=== PATIENT | female | born 2000 | race Caucasian/White ===

== ENCOUNTER 2020-04-16 00:40 | Emergency (ER) | payer BC ==
[2020-04-16] MEDS ORDERED: SODIUM CHLORIDE 0.9% 500 ML INFUS.BAG IV ONE ×2 (00:50→02:18)
[2020-04-16] MEDS ORDERED: ONDANSETRON 4 MG/2 ML VIAL IVPUSH ONE (00:50)
[2020-04-16] MEDS ORDERED: ACETAMINOPHEN 1000 MG/100 ML VIAL (NON FORMULARY) IVPB ONE (00:51)
[2020-04-16 00:52] VITALS: BP 105/64; PULSE 105; BMI 23.6
[2020-04-16] MEDS ORDERED: ACETAMINOPHEN INJECTION 100 ML IVPB ONE (00:59)
[2020-04-16] MEDS ORDERED: ONDANSETRON 4 MG/2 ML VIAL ONE (00:59)
[2020-04-16] MEDS ORDERED: LORazepam 2 MG/ML SDV VIAL ONE (01:37)
[2020-04-16] MEDS ORDERED: LORazepam 2 MG/ML SDV VIAL IVPUSH ONE (01:45)
== END 2020-04-16 02:54 | disposition home or self-care (01) ==
LOC: FER 00:40
PROC: 3E0333Z Introduction of Anti-inflammatory into Peripheral Vein, Percutaneous Approach (ICD-10-PCS; principal; 2020-04-16)
PROC: 3E033NZ Introduction of Analgesics, Hypnotics, Sedatives into Peripheral Vein, Percutaneous Approach (ICD-10-PCS; 2020-04-16)
PROC: 3E033GC Introduction of Other Therapeutic Substance into Peripheral Vein, Percutaneous Approach (ICD-10-PCS; 2020-04-16)
DX: F12.90 Cannabis use, unspecified, uncomplicated (principal); R11.10 Vomiting, unspecified
CPT/HCPCS: 99284-25; J0131

== ENCOUNTER 2021-05-21 21:29 | Emergency (ER) | payer BC ==
[2021-05-21 21:36] VITALS: BP 126/82; PULSE 80; TEMP 98.4; BMI 22.4
[2021-05-21] MEDS ORDERED: SODIUM CHLORIDE 1,000 ML IV STA ×2 (22:06→22:53)
[2021-05-21] MEDS ORDERED: ONDANSETRON 4 MG/2 ML VIAL IVPUSH ONE (22:06)
[2021-05-21] MEDS ORDERED: ONDANSETRON 4 MG/2 ML VIAL ONE (22:15)
[2021-05-21 22:29] LABS: EPITHELIAL CELLS MODERATE /hpf
[2021-05-21] MEDS ORDERED: KETOROLAC TROMETHAMINE 30 MG/1 ML VIAL ONE (23:37)
[2021-05-21] MEDS ORDERED: KETOROLAC TROMETHAMINE 30 MG/1 ML VIAL IVPUSH ONE (23:37)
[2021-05-21 23:55] LABS: BASO % 0.5 % (0-2.0); EOS % 0.7 % (0-4.5); HEMATOCRIT 36.9 % (32.4-45.2); HEMOGLOBIN 12.6 GM/dL (10.7-15.3); LYMPH % 34.5 % (8-40); MCH 30.9 pg (25.7-33.7); MCHC 34.2 g/dl (32.0-36.0); MEAN CELL VOLUME 90.4 fl (80-96); MEAN PLT VOLUME 9.3 fl (7.5-11.1); MONO % 8.2 % (3.8-10.2); NEUT % 56.1 % (42.8-82.8); PLATELET COUNT 201 10^3/uL (134-434); RBC 4.08 M/mm3 (3.60-5.2); RDW 13.3 % (11.6-15.6); WHITE BLOOD COUNT 7.2 K/mm3 (4.0-10.0)
[2021-05-22] LABS: CALCIUM 8.4 mg/dL (8.5-10.1)
[2021-05-22 00:02] LABS: ALBUMIN 3.6 g/dl (3.4-5.0); BLOOD UREA NITROGEN 13.1 mg/dL (7-18)
[2021-05-22 00:04] LABS: CREATININE 0.8 mg/dL (0.55-1.3)
[2021-05-22 00:06] LABS: BILIRUBIN,TOTAL 0.5 mg/dL (0.2-1); TOT PROT 7.2 g/dl (6.4-8.2)
[2021-05-22] MEDS ORDERED: HYOSCYAMINE SULFATE 0.125 MG *ODT PO ONE (00:52)
[2021-05-22] MEDS ORDERED: ONDANSETRON *ODT* 4 MG TABLET SL ONE (00:54)
[2021-05-22] MEDS ORDERED: ONDANSETRON *ODT* 4 MG TABLET ONE (00:56)
[2021-05-22] MEDS ORDERED: METOCLOPRAMIDE HCL 10 MG TABLET (FP) PO ONE (01:13)
== END 2021-05-22 01:29 | disposition home or self-care (01) ==
LOC: FER 21:29
PROC: 3E0333Z Introduction of Anti-inflammatory into Peripheral Vein, Percutaneous Approach (ICD-10-PCS; principal; 2021-05-21)
PROC: 3E033GC Introduction of Other Therapeutic Substance into Peripheral Vein, Percutaneous Approach (ICD-10-PCS; 2021-05-21)
PROC: 3E033GC Introduction of Other Therapeutic Substance into Peripheral Vein, Percutaneous Approach (ICD-10-PCS; 2021-05-21)
PROC: 3E0337Z Introduction of Electrolytic and Water Balance Substance into Peripheral Vein, Percutaneous Approach (ICD-10-PCS; 2021-05-21)
PROC: 3E0337Z Introduction of Electrolytic and Water Balance Substance into Peripheral Vein, Percutaneous Approach (ICD-10-PCS; 2021-05-21)
DX: R19.7 Diarrhea, unspecified (principal)
CPT/HCPCS: 36415; 80053; 81003; 81015; 81025; 85025; 99284-25; Q0162